=== PATIENT | female | born 1990 | race Caucasian/White ===

== ENCOUNTER 2018-01-10 21:30 | Emergency (ER) | payer BC ==
[~2018-01-10] VITALS: Ht 160 cm; Wt 45.5 kg
[2018-01-10 21:37] VITALS: BP 127/84; PULSE 127; RESP 22; TEMP 98.7; O2SAT 97
[2018-01-10] MEDS ORDERED: LORazepam 2 MG/ML VIAL ONE (21:38)
[2018-01-10] MEDS ORDERED: KEPP10002 PO (21:49)
[2018-01-10] MEDS ORDERED: LORA2TAB7 PO (21:49)
[2018-01-10 21:55] VITALS: O2SAT 99
[2018-01-10] MEDS ORDERED: SODIUM CHLORIDE 0.9% FLUSH 10 ML FLUSH IVF PRN (22:00)
[2018-01-10] MEDS ORDERED: LORazepam 2 MG/ML VIAL IVS ONE (22:00)
[2018-01-10] MEDS ORDERED: LORazepam 2 MG/ML VIAL IV PUSH ONE (22:00)
--- NOTE | 2018-01-10 22:17 | PD ---
HPI Chief Complaint: Seizure Time Seen by Provider: 21:49 Travel History International Travel<30 days: No Contact w/Intl Traveler<30days: No Traveled to known affect area: No History of Present Illness HPI 27-year-old female with history of seizure disorder was here visiting a friend when she had a seizure in triage. She was brought immediately back to her room. Patient had an apparent jacksonian march in her right upper and right lower extremity with deviated gaze to the right. This evolved into a generalized tonic-clonic seizure. Her seizure activity resolved after 4 mg of IV Ativan. When she regained normal consciousness she was slightly postictal. She was able to provide history and states that she was diagnosed with epilepsy 2 years ago and is on Keppra. She reports compliance to this medication. She denies fevers or recent illness. No headaches. No alcohol or illicit drug use. PFSH Past Medical History Seizures: Yes (@5 per wk) Tetanus Vaccination: < 5 Years Influenza Vaccination: Yes ?: Unknown LMP: 12/17/17 Past Surgical History Eye Surgery: Yes (left lazy eye) Tonsillectomy: Yes Social History Alcohol Use: No Tobacco Use: No (quit in sep 2017) Substance Use: No Allergies-Medications (Allergen,Severity, Reaction): Coded Allergies: haloperidol (Verified Allergy, Intermediate, hypotension, 01/10/18) clonazepam (Verified Allergy, Mild, hypotension, 01/10/18) Reported Meds & Prescriptions Reported Meds & Active Scripts Active Reported Lorazepam 2 Mg Tab 2 Mg PO DAILY PRN Keppra (Levetiracetam) 1,000 Mg Tab 1,000 Mg PO BID Review of Systems Except as stated in HPI: all other systems reviewed are Neg Physical Exam Narrative GENERAL: Well-developed, thin, actively seizing SKIN: Focused skin assessment warm/dry. HEAD: Atraumatic. Normocephalic. EYES: Pupils equal and round. No scleral icterus. No injection or drainage. ENT: Mucous membranes pink and moist. NECK: Trachea midline. No JVD. CARDIOVASCULAR: Regular rate and rhythm. RESPIRATORY: No accessory muscle use. Clear to auscultation. Breath sounds equal bilaterally. GASTROINTESTINAL: Abdomen soft, non-tender, nondistended. Hepatic and splenic margins not palpable. MUSCULOSKELETAL: No obvious deformities. No clubbing. No cyanosis. No edema. NEUROLOGICAL: Generalized seizure Data Data Last Documented VS Vital Signs Date Time Temp Pulse Resp B/P (MAP) Pulse Ox O2 Delivery O2 Flow Rate FiO2 01/10/18 21:55 99 Room Air 01/10/18 21:37 98.7 127 22 127/84 (98) Orders Orders Lorazepam Inj (Ativan Inj) (01/10/18 21:38) Complete Blood Count With Diff (01/10/18 21:49) Alcohol (Ethanol) (01/10/18 21:49) Drug Screen, Random Urine (01/10/18 21:49) Electrocardiogram (01/10/18 ) Ct Brain W/O Iv Contrast(Rout) (01/10/18 ) Blood Glucose (01/10/18 21:49) Ecg Monitoring (01/10/18 21:49) Iv Access Insert/Monitor (01/10/18 21:49) Oximetry (01/10/18 21:49) Comprehensive Metabolic Panel (01/10/18 21:49) Sodium Chloride 0.9% Flush (Ns Flush) (01/10/18 22:00) Lorazepam Inj (Ativan Inj) (01/10/18 22:00) Ua Includes Microscopic (01/10/18 21:49) Ed Urine Pregnancytest Poc (01/10/18 21:49) Lorazepam Inj (Ativan Inj) (01/10/18 22:00) Labs Laboratory Tests Test 01/10/18 22:09 01/10/18 23:38 White Blood Count 8.2 TH/MM3 Red Blood Count 5.19 MIL/MM3 Hemoglobin 12.9 GM/DL Hematocrit 39.2 % Mean Corpuscular Volume 75.6 FL Mean Corpuscular Hemoglobin 24.9 PG Mean Corpuscular Hemoglobin Concent 33.0 % Red Cell Distribution Width 19.5 % Platelet Count 210 TH/MM3 Mean Platelet Volume 9.7 FL Neutrophils (%) (Auto) 60.0 % Lymphocytes (%) (Auto) 33.4 % Monocytes (%) (Auto) 3.4 % Eosinophils (%) (Auto) 2.2 % Basophils (%) (Auto) 1.0 % Neutrophils # (Auto) 4.9 TH/MM3 Lymphocytes # (Auto) 2.7 TH/MM3 Monocytes # (Auto) 0.3 TH/MM3 Eosinophils # (Auto) 0.2 TH/MM3 Basophils # (Auto) 0.1 TH/MM3 CBC Comment AUTO DIFF Differential Comment AUTO DIFF CONFIRMED Ovalocytes 1+ Acanthocytes OCC Total Protein 6.7 GM/DL Alkaline Phosphatase 71 U/L Total Bilirubin 0.7 MG/DL Anion Gap 7 MEQ/L Estimat Glomerular Filtration Rate 85 ML/MIN Ethyl Alcohol Level LESS THAN 3 MG/DL MDM Medical Decision Making Medical Screen Exam Complete: Yes Emergency Medical Condition: Yes Differential Diagnosis Breakthrough seizure, medication noncompliance, metabolic abnormality, intracranial abnormality, withdrawal seizure Narrative Course Vital signs reviewed. CT head shows no acute intracranial abnormality. Labs reviewed. 12:30 AM: I attempted to make the patient aware of her results, however she is no longer in the exam room. There are no patient belongings. She was deemed to be eloped. Diagnosis Primary Impression: Left against medical advice Additional Impression: Breakthrough seizure Disposition: 07 AGAINST MEDICAL ADVICE Condition: Stable Suresh Torres MD Jan 10, 2018 22:17
[2018-01-10 22:24] LABS: AUTOMATED NEUTROPHIL # 4.9 TH/MM3 (1.8-7.7); BASOPHIL # 0.1 TH/MM3 (0-0.2); EOSINOPHIL # 0.2 TH/MM3 (0-0.4); EOSINOPHIL % 2.2 % (0.0-4.0); HEMATOCRIT 39.2 % (35.0-46.0); HEMOGLOBIN 12.9 GM/DL (11.6-15.3); LYMPH % 33.4 % (9.0-44.0); LYMPHOCYTE # 2.7 TH/MM3 (1.0-4.8); MEAN CELL VOLUME 75.6 FL (80.0-100.0); MEAN CORPUSCULAR HEMOGLOBIN 24.9 PG (27.0-34.0); MEAN PLATELET VOLUME 9.7 FL (7.0-11.0); MONO % 3.4 % (0.0-8.0); MONOCYTE # 0.3 TH/MM3 (0-0.9); PLATELET COUNT 210 TH/MM3 (150-450); RED BLOOD COUNT 5.19 MIL/MM3 (4.00-5.30); RED CELL DISTRIBUTION WIDTH 19.5 % (11.6-17.2); WHITE BLOOD COUNT 8.2 TH/MM3 (4.0-11.0)
--- NOTE | 2018-01-10 22:41 | RADRPT ---
EXAM DATE/TIME: 01/10/2018 22:27 [facility] COMPARISON: No previous studies available for comparison. INDICATIONS : Seizures. RADIATION DOSE: 39.41 CTDIvol (mGy) MEDICAL HISTORY : Seizures. SURGICAL HISTORY : None. ENCOUNTER: Initial ACUITY: 1 day PAIN SCALE: 0/10 LOCATION: cranial TECHNIQUE: Multiple contiguous axial images were obtained of the head. Using automated exposure control and adj ustment of the mA and/or kV according to patient size, radiation dose was kept as low as reasonably a chievable to obtain optimal diagnostic quality images. DICOM format image data is available electro nically for review and comparison. FINDINGS: CEREBRUM: The ventricles are normal for age. No evidence of midline shift, mass lesion, hemorrhage or acute in farction. No extra-axial fluid collections are seen. POSTERIOR FOSSA: The cerebellum and brainstem are intact. The 4th ventricle is midline. The cerebellopontine angle i s unremarkable. EXTRACRANIAL: The visualized portion of the orbits is intact. SKULL: The calvaria is intact. No evidence of skull fracture. CONCLUSION: Negative for acute process Paul Fabian MD FACR on January 10, 2018 at 22:38 Board Certified Radiologist. This report was verified electronically.
[2018-01-10 23:44] LABS: ACANTHOCYTES OCC (NORMAL); OVALOCYTES 1+ (NORMAL)
[2018-01-11 00:04] LABS: ALBUMIN 3.8 GM/DL (3.4-5.0); ALT (GPT) 14 U/L (10-53); AST (GOT) 13 U/L (15-37); BICARBONATE 25.4 MEQ/L (21.0-32.0); BLOOD UREA NITROGEN 12 MG/DL (7-18); CALCIUM 8.7 MG/DL (8.5-10.1); CHLORIDE 110 MEQ/L (98-107); CREATININE 0.82 MG/DL (0.50-1.00); GLOMERULAR FILTRATION RATE 85 ML/MIN (>89); GLUCOSE,RANDOM 96 MG/DL (74-106); SODIUM (NA) 142 MEQ/L (136-145)
[2018-01-11 00:06] LABS: ALKALINE PHOSPHATASE 71 U/L (45-117); TOTAL BILIRUBIN ADULT 0.7 MG/DL (0.2-1.0); TOTAL PROTEIN 6.7 GM/DL (6.4-8.2)
--- NOTE | 2018-01-11 18:37 | EKG ---
Date Performed: 01/10/2018 Time Performed: 22:13:28 PTAGE: 27 years EKG: Sinus rhythm WITH SINUS ARRHYTHMIA POSSIBLE LEFT ATRIAL ENLARGEMENT POSSIBLE RIGHT VENTRICULAR CONDUCTION DELAY N ONSPECIFIC T-WAVE ABNORMALITY BORDERLINE ECG NO PREVIOUS TRACING DOCTOR: Santos Estrella Interpretating Date/Time 01/11/2018 18:35:28
== END 2018-01-11 01:42 | disposition left against medical advice (07) ==
LOC: NEPE 21:30
DX: G40.409 Other generalized epilepsy and epileptic syndromes, not intractable, without status epilepticus (principal); I49.9 Cardiac arrhythmia, unspecified; Z87.891 Personal history of nicotine dependence; Z53.20 Procedure and treatment not carried out because of patient's decision for unspecified reasons
CPT/HCPCS: 70450; 80053; 80307; 84703; 85025; 93005; 96374; 96375; 99285; J2060